=== PATIENT | female | born 1955 | race Caucasian/White ===

== ENCOUNTER → 2020-08-22 | Outpatient (CLI) | payer MEDICARE | LOC: HEART 5 08-21 15:30 | DX: Z48.812 Encounter for surgical aftercare following surgery on the circulatory system (principal); Z86.79 Personal history of other diseases of the circulatory system; Z95.820 Peripheral vascular angioplasty status with implants and grafts; I08.1 Rheumatic disorders of both mitral and tricuspid valves | CPT/HCPCS: 93306 ==

== ENCOUNTER → 2020-11-13 | Outpatient (CLI) | payer MEDICARE | LOC: MAMO 10:53 | DX: Z12.31 Encounter for screening mammogram for malignant neoplasm of breast (principal); M81.0 Age-related osteoporosis without current pathological fracture | CPT/HCPCS: 77063; 77067; 77080 ==